=== PATIENT | male | born 1985 | race Caucasian/White ===

== ENCOUNTER 2018-05-07 06:04 | Inpatient (IN) ==
[2018-05-07] MEDS ORDERED: Metoprolol Tartrate 25 MG Tablet PO SCH (06:30)
[2018-05-07] MEDS ORDERED: Chlorhexidine Gluconate 2% 1 Pack (2 Cloths) TOPICAL SCH (06:30)
[2018-05-07] MEDS ORDERED: ceFAZolin 2 GM IV; once IV.SIG ONE (06:45)
[2018-05-07] MEDS ORDERED: Bupivacaine/Epinephrine Inj 0.25% 50 ML Vial ONE (06:53)
[2018-05-07] MEDS ORDERED: Sodium Chlor 0.9% Inj 500 ML IV.SIG SCH (07:00)
[2018-05-07] MEDS ORDERED: Famotidine PF Inj 20 MG/2 ML Vial ONE (07:05)
[2018-05-07] MEDS ORDERED: Acetaminophen-HYDROcodone 325/7.5 Liq 15 ML UDC PO PRN (10:06)
[2018-05-07] MEDS ORDERED: diphenhydrAMINE HCl 12.5 MG/5 ML Elixir UDC PO PRN (10:06)
[2018-05-07] MEDS ORDERED: Naloxone Inj 0.4 MG/ML Vial IV.PUSH PRN (10:19)
[2018-05-07] MEDS ORDERED: Morphine Inj 30 MG/30 ML PCA.VIAL PCA PRN (10:19)
[2018-05-07] MEDS ORDERED: *Promethazine Inj 25 MG/ML Vial PERIprocedural use ONLY ONE ×2 (10:20→10:48)
[2018-05-07] MEDS ORDERED: Post-op Orders (for Pharmacy) OTHER STA (10:20)
[2018-05-07] MEDS ORDERED: fentaNYL Citrate Inj 100 MCG/2 ML Ampul ONE (10:26)
[2018-05-07] MEDS ORDERED: *morphine SULFATE 4 MG/ML PERIprocedure ONLY ONE (10:27)
[2018-05-07] MEDS ORDERED: *morphine SULFATE 10 MG/ML PERIprocedure ONLY ONE (10:34)
[2018-05-07] MEDS ORDERED: Morphine Inj 30 MG/30 ML PCA.VIAL PCA ONE (10:48)
[2018-05-07] MEDS ORDERED: KCL 20 mEq/D5W/NaCl 0.45% Inj 1,000 ML ONE (10:48)
[2018-05-07] MEDS ORDERED: Lidocaine PF 1% Inj 5 ML Syringe INFILTRATN ONE (13:31)
[2018-05-07] MEDS ORDERED: Glycopyrrolate Inj 1 MG/5 ML Syringe IV.PUSH ONE (13:31)
[2018-05-07] MEDS ORDERED: Phenylephrine/NS 1000 MCG/10ML Syringe IV.PUSH ONE (13:31)
[2018-05-07] MEDS ORDERED: Neostigmine Inj 5 MG/5 ML Syringe IV.PUSH ONE (13:31)
[2018-05-07] MEDS: Enoxaparin Inj 40 MG/0.4 ML Syringe SQ SCH (15:31)
[2018-05-07] MEDS: ceFAZolin 2 GM Premix Inj 2 GM/50 ML PIGGYBACK IV.SIG SCH (17:25)
[2018-05-07] MEDS: KCL 20 mEq/D5W/NaCl 0.45% Inj 1,000 ML IV.CONT SCH ×2 (22:02→22:05)
[2018-05-08] MEDS: ceFAZolin 2 GM Premix Inj 2 GM/50 ML PIGGYBACK IV.SIG SCH ×2 (00:06→08:27)
[2018-05-08] MEDS: KCL 20 mEq/D5W/NaCl 0.45% Inj 1,000 ML IV.CONT SCH ×3 (04:27→18:02)
[2018-05-08 09:13] LABS: Baso % (Auto) 0.1 % (0.0-2.0); Eos % (Auto) 0.2 % (0.0-4.0); Hematocrit 39.6 % (39.0-51.0); Hemoglobin 13.1 gm/dL (13.0-17.0); Lymph # (Auto) 1.4 th/mm3 (1.0-4.8); Lymph % (Auto) 13.5 % (9.0-44.0); Mean Corpuscular HGB Conc 33.1 % (32.0-36.0); Mean Corpuscular Hemoglobin 27.5 pg (27.0-34.0); Mean Corpuscular Volume 83.1 fL (80.0-100.0); Mean Platelet Volume 8.4 fL (7.0-11.0); Mono % (Auto) 9.7 % (0.0-8.0); Neut # (Auto) 7.8 th/mm3 (1.8-7.7); Neut % (Auto) 76.5 % (16.0-70.0); Platelet Count 339 th/mm3 (150-450); Red Blood Count 4.77 mil/mm3 (4.50-5.90); Red Cell Distribution Width 14.1 % (11.6-17.2); White Blood Count 10.2 th/mm3 (4.0-11.0)
[2018-05-08 09:33] LABS: Anion Gap 9 meq/L (5-15); Blood Urea Nitrogen 6 mg/dL (7-18); Calcium 9.2 mg/dL (8.5-10.1); Carbon Dioxide 26.5 meq/L (21.0-32.0); Chloride 104 meq/L (98-107); Glomerular Filtration Rate Greater Than 89 mL/min (>89); Glucose,Random 103 mg/dL (74-106); Magnesium 2.3 mg/dL (1.5-2.5); Potassium 3.9 meq/L (3.5-5.1); Sodium 139 meq/L (136-145)
--- NOTE | 2018-05-08 09:54 | P.PNGS ---
Subjective Patient reports: feels better, tolerating liquids well Physical Exam Vital signs: Vital Signs 05/07/18 10:18 05/07/18 10:30 05/07/18 10:45 Temperature 97.7 F Pulse Rate 104 H 93 H 94 H Respiratory Rate 13 13 12 Blood Pressure 115/64 126/70 128/72 Pulse Oximetry 93 L 95 95 05/07/18 11:00 05/07/18 11:30 05/07/18 12:00 Temperature 97.6 F Pulse Rate 91 H 94 H 85 Respiratory Rate 17 13 16 Blood Pressure 144/74 H 126/70 154/76 H Pulse Oximetry 95 95 99 05/07/18 13:00 05/07/18 14:00 05/07/18 15:00 Temperature Pulse Rate 84 107 H 81 Respiratory Rate 12 19 16 Blood Pressure 159/88 H 161/78 H 139/82 Pulse Oximetry 98 98 98 05/07/18 15:41 05/07/18 20:00 05/08/18 01:20 Temperature 97.5 F L 98.4 F 98.6 F Pulse Rate 84 77 79 Respiratory Rate 18 18 Blood Pressure 120/61 166/88 H 143/71 H Pulse Oximetry 97 96 100 05/08/18 05:20 05/08/18 06:14 05/08/18 08:00 Temperature 97.9 F 98.0 F Pulse Rate 92 H 79 Respiratory Rate 18 18 19 Blood Pressure 137/84 140/70 Pulse Oximetry 97 Intake & Output 05/07/18 05/08/18 05/08/18 18:59 06:59 18:59 Intake Total 1888 / 1888 208 / 2088 150 / 150 Output Total 310 / 310 Balance 1578 / 1578 208 / 2088 150 / 150 Intake: IV 888 / 888 2087 / 2087 150 / 150 D5W/1/2NS + KCL 20 mEq Inj 1, 688 / 688 000 ML @ 0 mls/hr .ROUTE .STK- [facility] Rx#:[id number] D5W/1/2NS + KCL 20 mEq Inj 1, 1000 / 1000 000 ML @ 150 mls/hr IV.CONT . Q6H40M [facility] Rx#:[id number] Ofirmev Inj 1,000 mg In 100 ml 100 / 100 200 / 200 @ 400 mls/hr IV.SIG Q6H [facility] Rx# :[id number] Ancef 2 GM Premix Inj 2 gm In 100 / 100 50 / 50 50 ml @ 100 mls/hr IV.SIG Q8H [facility] Rx#:[id number] Flagyl 500 MG Inj 100 ML @ 100 100 / 100 100 / 100 100 / 100 mls/hr IV.SIG Q8H [facility] Rx#: [id number] Oral 0 / 0 Anesthesia Amount 1000 / 1000 Output: Urine 300 / 300 Estimated Blood Loss Other: # Voids 1 2 - Constitutional no acute distress - Routine Respiratory Exam Present: CTA bilaterally - Routine Cardiovascular Exam Present: RRR - Routine Abdominal Exam Present: soft, normoactive bowel sounds Comments: normal post-operative tenderness - Routine Extremities Exam Present: full ROM - Routine Skin Exam Comments: surgical incisions CDI - Routine Neurological Exam Present: alert, oriented X3 - Additional findings Additional findings: Laboratory Results - last 12 hr 05/08/18 05/08/18 08:18 08:18 WBC 10.2 RBC 4.77 Hgb 13.1 Hct 39.6 MCV 83.1 MCH 27.5 MCHC 33.1 RDW 14.1 Plt Count 339 MPV 8.4 Neut % (Auto) 76.5 H Lymph % (Auto) 13.5 [place] % (Auto) 9.7 H Eos % (Auto) 0.2 Baso % (Auto) 0.1 Neut # (Auto) 7.8 H Lymph # (Auto) 1.4 [place] # (Auto) 1.0 H Eos # (Auto) 0.0 Baso # (Auto) 0.0 WBC Differential . Differential Comment Auto diff final Sodium 139 Potassium 3.9 Chloride 104 Carbon Dioxide 26.5 Anion Gap 9 BUN 6 L Creatinine 0.79 Estimated GFR Greater than 89 Random Glucose 103 Calcium 9.2 Magnesium 2.3 Assessment and Plan - Assessment (1) Gastric bypass status for obesity Code(s): Z98.84 - Bariatric surgery status Status: Acute Onset Date: Plan: -Start clears today with initial goal of 30ml Q 30min -Restart home meds -D/C [facility] [employer], transition to oral pain control -Continue with frequent ambulation - Plan Code Status: Full Discussed Condition With: Patient, and RN at bedside - Attending Attestation The exam, history, and the medical decision-making described in the above note were completed with the assistance of the mid-level provider. I reviewed and agree with the findings presented. I attest that I had a [id number] encounter with the patient on the same day, and personally performed and documented my assessment and findings in the medical record.
[2018-05-08] MEDS: buPROPion 75 MG Tablet PO SCH ×2 (12:03→20:50)
[2018-05-08] MEDS: Enoxaparin Inj 40 MG/0.4 ML Syringe SQ SCH (15:09)
[2018-05-08] MEDS ORDERED: Lisinopril 20 MG Tablet PO SCH (21:00)
[2018-05-09] MEDS: KCL 20 mEq/D5W/NaCl 0.45% Inj 1,000 ML IV.CONT SCH (02:58)
[2018-05-09] MEDS: buPROPion 75 MG Tablet PO SCH (08:59)
--- NOTE | 2018-05-09 12:58 | P.PNGS ---
Subjective Patient reports: no new complaints, feels better, flatus Physical Exam Vital signs: Vital Signs 05/08/18 16:42 05/08/18 20:00 05/08/18 21:54 Temperature 97.7 F 97.6 F Pulse Rate 90 90 Respiratory Rate 19 18 Blood Pressure 171/96 H 147/89 H Pulse Oximetry 98 98 98 05/09/18 00:00 05/09/18 08:00 05/09/18 08:37 Temperature 98.3 F 97.8 F Pulse Rate 89 89 Respiratory Rate 18 18 Blood Pressure 162/83 H 136/78 Pulse Oximetry 97 96 96 Intake & Output 05/08/18 05/09/18 05/09/18 18:59 06:59 18:59 Intake Total 2579 / 2579 1000 / 1000 Output Total 1000 / 1000 Balance 1579 / 1579 1000 / 1000 Intake: IV 2249 / 2249 1000 / 1000 D5W/1/2NS + KCL 20 mEq Inj 1998 1000 / 1000 000 ML @ 100 mls/hr IV.CONT . Q10H [facility] Rx#:[id number] Ofirmev Inj 1,000 mg In 100 ml 100 / 100 @ 400 mls/hr IV.SIG Q6H [facility] Rx# :[id number] Ancef 2 GM Premix Inj 2 gm In 50 / 50 50 ml @ 100 mls/hr IV.SIG Q8H [facility] Rx#:[id number] Flagyl 500 MG Inj 100 ML @ 100 100 / 100 mls/hr IV.SIG Q8H [facility] Rx#: [id number] Oral 330 / 330 Output: Urine 1000 / 1000 Other: # Voids 2 1 - Constitutional no acute distress - Routine Abdominal Exam Present: soft, normoactive bowel sounds Comments: normal post operative tenderness, surgical incisions CDI Assessment and Plan - Assessment (1) Gastric bypass status for obesity Code(s): Z98.84 - Bariatric surgery status Status: Acute Onset Date: - Plan Continue to increase fluids as tolerated D/C home today - Attending Attestation The exam, history, and the medical decision-making described in the above note were completed with the assistance of the mid-level provider. I reviewed and agree with the findings presented. I attest that I had a [id number] encounter with the patient on the same day, and personally performed and documented my assessment and findings in the medical record.
--- NOTE | 2018-05-21 20:18 | MP ---
cc: Pierre Cox MD DATE OF OPERATION: 05/07/2018 PREOPERATIVE DIAGNOSIS: Morbid obesity, with a body mass index of 50, complicated by essential hypertension. POSTOPERATIVE DIAGNOSIS: Morbid obesity, with a body mass index of 50, complicated by essential hypertension. PROCEDURE PERFORMED: Laparoscopic Mark-en-Y gastric bypass, 100 cm Mark limb, antegastric-antecolic. SURGEON: Pierre Cox MD ANESTHESIA: General endotracheal anesthesia. ESTIMATED BLOOD LOSS: Scant. FINDINGS: Fatty liver. SPECIMENS: None. COMPLICATIONS: None. OPERATION: The patient was brought to the operating room and placed on the operating table in supine position, bilateral sequential inflation device placed on lower extremities, general anesthesia instituted, antibiotics initiated. The abdomen was prepped and draped sterilely. A point 18-cm distal to the xiphoid in the midline anesthetized with 0.25% Marcaine with epinephrine. The skin incision was made, a 5-mm OptiView port placed under direct vision and pneumoperitoneum was created. Under direct vision a 5-mm left upper quadrant, 12-mm left upper quadrant, 12-mm right upper quadrant and 5-mm right upper quadrant ports were placed. Prior to placement of all ports, the skin and peritoneum were anesthetized with 0.25% Marcaine with epinephrine. The patient's omentum was lifted into the upper abdomen. It was split down the middle to create a path for the Mark limb. The ligament of Treitz was identified, a point 40 cm distal identified. The small bowel was divided in this region using an [place] Flex stapler vascular load reinforced with SeamGuard. The distal segment was brought up for a distance of 100 cm, enterotomy created in this region, enterotomy in the biliopancreatic limb and a [id number] stapled jejunojejunostomy created in the usual manner. The mesenteric defect at the jejunojejunostomy was closed with 2-0 Surgidac suture in a running manner. The patient was placed in reverse Trendelenburg position with the left side up. The Chrissy-Flex retractor was placed. The left lobe of the liver was retracted. The angle of His was taken down bluntly, a point 5 cm distal to the GE junction along the lesser curve identified, the lesser sac entered using blunt dissection. The stomach was partitioned horizontally using an [place]-Flex stapler blue load, an additional firing taken directed towards the angle of His to completely divide the stomach. A gastrotomy created in the new stomach, enterotomy in the Mark limb and gastrojejunostomy created, stomal opening of 2 cm. An 18-Barbadian orogastric tube was placed across the anastomosis, the defect then closed in two layers of running 2-0 Vicryl. Prior to placement of the second layer, methylene blue instilled through the orogastric tube. There was no evidence of extravasation. Evicel was then placed over the gastrojejunostomy, jejunojejunostomy and all staple lines. The operative field inspected and hemostasis was present. The CO2 was released, all ports were removed. All skin incisions were closed with 4-0 Monocryl. The abdominal wall was cleaned and a sterile dressing placed. The patient was awakened and taken to the recovery room. MD TITO Win/THANH , 07:29 PM , 08:16 PM
== END 2018-05-09 13:32 | disposition home or self-care (01) ==
LOC: HSDI 06:04 → EDSTATUS 08:00 → N07 16:04
PROVIDERS: ADMIT Surgery; ATTEND Surgery